=== PATIENT | female | born 1935 | race Caucasian/White ===

== ENCOUNTER 2017-08-19 04:22 | Emergency (ER) | payer MEDICARE, OTHER ==
[~2017-08-19] VITALS: Ht 149.9 cm; Wt 39.0 kg
[~2017-08-19 04:22] MED LIST: ALPR.5 PO; AMPI500 PO; ANTIVIRAL MED; ATARAX; ATOR40TA PO; Aspir-Low81 MG PO; BISA5EC PO; BUME1 PO; CALCNI; CHOL10002 PO; CLON.3 PO; CLOP75 PO; DIAZ10 PO; DIAZ2; DIAZ2 PO; DIAZ5 PO; DOCU100 PO; FENT50TP TOP; FURO20 PO; GABA100 PO; HYDMOR2 PO; LABE100 PO; LEVSOD50 PO; LEVSOD75 PO; LIOT25; LIOT25 PO; LIOT5; LISI5 PO; METO25 PO; MICRO-K; NIFE10 PO; NITR.4SL; Nitroglycerin0.4 MG SL; OXYC10ER PO; POTA8; POTA8 PO; PRED10 PO; PRED5 PO; PROACE100 PO; RABE20 PO; SENN187 PO; SYNTHROID; TRAM50 PO; Valium2 MG PO; Xanax0.5 MG PO; [UNRECOGNIZED DRUG - OTHER] BC; [UNRECOGNIZED DRUG - OTHER] PO; [UNRECOGNIZED DRUG - REMARK]; [UNRECOGNIZED DRUG - REMARK]; [UNRECOGNIZED DRUG - REMARK]; [UNRECOGNIZED DRUG - REMARK]
[2017-08-19 05:10] LABS: BASOPHILS ABSOLUTE AUTO 0.01 K/mm3 (0.00-0.23); BASOPHILS PERCENT AUTO 0 % (0-2); EOSINOPHILS ABSOLUTE AUTO 0.08 K/mm3 (0.00-0.68); EOSINOPHILS PERCENT AUTO 1 % (0-6); Hematocrit 31.9 % (33.0-51.0); Hemoglobin 11.1 g/dL (11.5-16.0); IMMATURE GRAN ABSOLUTE AUTO 0.03 K/mm3 (0.00-0.10); IMMATURE GRAN PERCENT AUTO 0 % (0-1); LYMPHOCYTES ABSOLUTE AUTO 0.97 K/mm3 (0.84-5.20); LYMPHOCYTES PERCENT AUTO 9 % (21-46); MONOCYTES ABSOLUTE AUTO 0.83 K/mm3 (0.16-1.47); MONOCYTES PERCENT AUTO 7 % (4-13); Mean Corpuscular HGB Conc 34.8 g/dL (31.5-36.5); Mean Corpuscular Volume 89 fL (80-100); Mean Platelet Volume 8.6 fL (9.1-12.4); NEUTROPHILS ABSOLUTE AUTO 9.37 K/mm3 (1.96-9.15); NEUTROPHILS PERCENT AUTO 83 % (41-73); Platelet Count 187 K/mm3 (150-400); RDW Coefficient Variation 15.2 % (11.7-14.2); RDW Standard Deviation 49.7 fL (35.1-46.3); Red Blood Cell Count 3.58 M/mm3 (3.80-5.20); White Blood Cell Count 11.29 K/mm3 (4.00-11.30)
[2017-08-19 05:36] LABS: Alanine Aminotransfer (ALT/SGP 14 U/L (12-78); Albumin, Blood 3.5 g/dL (3.4-5.0); Albumin/Globulin Ratio 1.1 (0.8-1.8); Alk Phos 83 U/L (50-136); Anion Gap 7 mmol/L (6-16); Aspartate Aminotrans (AST/SGOT 22 U/L (12-37); Bilirubin, Total 0.9 mg/dL (0.1-1.0); Blood Urea Nitrogen 16 mg/dL (8-24); Bun/Creatinine Ratio 21.4 (12.0-20.0); CO2, Blood 31 mmol/L (21-32); Calcium, Blood 8.9 mg/dL (8.5-10.1); Chloride, Blood 96 mmol/L (98-108); Creatinine, Blood 0.75 mg/dL (0.40-1.00); Globulin, Blood 3.1 g/dL (2.2-4.0); Glomerular Filtration Rate >60 (60-); Glucose, Blood 96 mg/dL (70-99); Potassium, Blood 3.3 mmol/L (3.5-5.5); Sodium, Blood 134 mmol/L (136-145); Total Protein, Blood 6.6 g/dL (6.4-8.2); Troponin I 0.017 ng/mL (0.000-0.040)
[2017-09-06] MEDS ORDERED: PRED5 PO ×2 (06:18→06:20)
[2017-09-06] MEDS ORDERED: LOSA25 PO (06:18)
[2017-09-06] MEDS ORDERED: HYDR10 PO ×2 (06:18→06:20)
[2017-09-06] MEDS ORDERED: FOLI1 PO (06:20)
[2017-09-06] MEDS ORDERED: LOSA50 PO (06:20)
[2017-09-06] MEDS ORDERED: FAMO20 PO (06:20)
[2017-09-06] MEDS ORDERED: METO50 PO (06:20)
[2017-09-06] MEDS ORDERED: K-TAB ER8 MEQ PO (06:21)
[2017-09-06] MEDS ORDERED: MAGCHL64ER PO (06:22)
[2017-09-06] MEDS ORDERED: VITAMIN D32000 UNIT PO (06:22)
[2017-09-06] MEDS ORDERED: NIAC500 PO (06:22)
[2017-09-06] MEDS ORDERED: CALCA400CH PO (06:23)
[2017-09-06] MEDS ORDERED: TRAM50 PO (06:23)
[2017-09-06] MEDS ORDERED: Synthroid50 MCG (06:24)
[2017-09-06] MEDS ORDERED: HYDPRA60 TOP (10:19)
[2017-09-29] MEDS ORDERED: LEVSOD75 PO (17:34)
[2018-07-26] MEDS ORDERED: FURO20 PO (15:18)
[2018-07-26] MEDS ORDERED: Norvasc2.5 MG PO (15:18)
[2018-07-26] MEDS ORDERED: ISOD40ER (15:18)
[2018-07-26] MEDS ORDERED: ALPR.5 PO (15:19)
[2018-07-26] MEDS ORDERED: BETA.05TCA (15:19)
[2018-07-26] MEDS ORDERED: BISA10S PR (15:20)
[2018-07-26] MEDS ORDERED: DIPH50 PO (15:20)
[2018-07-26] MEDS ORDERED: OLAN5 PO (15:21)
[2018-07-26] MEDS ORDERED: PRED10 PO (15:22)
[2018-07-26] MEDS ORDERED: LOPE2C PO (15:22)
[2018-07-26] MEDS ORDERED: TRAM50 PO (15:22)
[2018-07-31] MEDS ORDERED: DOCU100 PO (16:29)
[2018-07-31] MEDS ORDERED: Ferrous Sulfat325 M2 PO (16:30)
[2018-07-31] MEDS ORDERED: Isosorbide Mono30 MG PO (16:33)
[2018-07-31] MEDS ORDERED: METO50 PO (16:35)
== END 2017-08-19 08:21 | disposition home or self-care (01) ==
LOC: ER 04:22
PROVIDERS: Emergency Medicine
DX: I10 Essential (primary) hypertension (principal); K21.9 Gastro-esophageal reflux disease without esophagitis; I48.91 Unspecified atrial fibrillation; F32.9 Major depressive disorder, single episode, unspecified; Z88.1 Allergy status to other antibiotic agents; Z88.5 Allergy status to narcotic agent; Z88.4 Allergy status to anesthetic agent; Z88.8 Allergy status to other drugs, medicaments and biological substances; Z88.6 Allergy status to analgesic agent; Z88.0 Allergy status to penicillin; Z88.2 Allergy status to sulfonamides; Z79.52 Long term (current) use of systemic steroids; Z90.710 Acquired absence of both cervix and uterus; Z90.49 Acquired absence of other specified parts of digestive tract; Z91.14 Patient's other noncompliance with medication regimen
CPT/HCPCS: 80053; 81000; 84484; 85025; 93005; 93010; 96374; 99283

== ENCOUNTER 2017-09-28 14:19 | Inpatient (IN) | payer MEDICARE, OTHER ==
[~2017-09-28] VITALS: Ht 152.4 cm; Wt 38.7 kg
[~2017-09-28 14:19] MED LIST changes: +CALCA400CH PO; +FAMO20 PO; +FOLI1 PO; +HYDPRA60 TOP; +HYDR10 PO; +LOSA25 PO; +LOSA50 PO; +MAGCHL64ER PO; +METO50 PO; +NIAC500 PO; +POTA10T PO; +Synthroid50 MCG; +VITAMIN D32000 UNIT PO
[2017-09-28] MEDS ORDERED: Nitroglycerin0.4 MG SL (15:00)
[2017-09-28] MEDS ORDERED: MAGNESIUM400 MG PO (15:01)
[2017-09-28] MEDS ORDERED: ZINC30 M1 PO (15:01)
[2017-09-28 15:02] LABS: BASOPHILS ABSOLUTE AUTO 0.01 K/mm3 (0.00-0.23); BASOPHILS PERCENT AUTO 0 % (0-2); EOSINOPHILS ABSOLUTE AUTO 0.06 K/mm3 (0.00-0.68); EOSINOPHILS PERCENT AUTO 1 % (0-6); Hematocrit 34.7 % (33.0-51.0); Hemoglobin 12.2 g/dL (11.5-16.0); IMMATURE GRAN ABSOLUTE AUTO 0.04 K/mm3 (0.00-0.10); IMMATURE GRAN PERCENT AUTO 1 % (0-1); LYMPHOCYTES ABSOLUTE AUTO 1.19 K/mm3 (0.84-5.20); LYMPHOCYTES PERCENT AUTO 14 % (21-46); MONOCYTES ABSOLUTE AUTO 0.51 K/mm3 (0.16-1.47); MONOCYTES PERCENT AUTO 6 % (4-13); Mean Corpuscular HGB 30.7 pg (26.0-34.0); Mean Corpuscular HGB Conc 35.2 g/dL (31.5-36.5); Mean Corpuscular Volume 87 fL (80-100); Mean Platelet Volume 8.3 fL (9.1-12.4); NEUTROPHILS ABSOLUTE AUTO 6.91 K/mm3 (1.96-9.15); NEUTROPHILS PERCENT AUTO 79 % (41-73); Platelet Count 174 K/mm3 (150-400); RDW Coefficient Variation 15.1 % (11.7-14.2); RDW Standard Deviation 48.7 fL (35.1-46.3); Red Blood Cell Count 3.98 M/mm3 (3.80-5.20); White Blood Cell Count 8.72 K/mm3 (4.00-11.30)
[2017-09-28] MEDS ORDERED: Garlic1 EAC1 PO (15:02)
[2017-09-28] MEDS ORDERED: CALCITRATE200 MG PO (15:03)
[2017-09-28 15:15] LABS: International Normalized Ratio 1.12; Prothrombin Time Results 11.7 Sec (9.7-11.5)
[2017-09-28 15:26] LABS: Alanine Aminotransfer (ALT/SGP 12 U/L (12-78); Albumin, Blood 3.3 g/dL (3.4-5.0); Alk Phos 90 U/L (50-136); Anion Gap 6 mmol/L (6-16); Aspartate Aminotrans (AST/SGOT 16 U/L (12-37); Bilirubin, Total 0.6 mg/dL (0.1-1.0); Blood Urea Nitrogen 19 mg/dL (8-24); Bun/Creatinine Ratio 24.3 (12.0-20.0); CO2, Blood 31 mmol/L (21-32); Calcium, Blood 8.5 mg/dL (8.5-10.1); Chloride, Blood 97 mmol/L (98-108); Creatinine, Blood 0.78 mg/dL (0.40-1.00); Globulin, Blood 3.2 g/dL (2.2-4.0); Glomerular Filtration Rate >60 (60-); Glucose, Blood 95 mg/dL (70-99); Magnesium, Blood 2.2 mg/dL (1.6-2.4); Potassium, Blood 3.3 mmol/L (3.5-5.5); Sodium, Blood 134 mmol/L (136-145); Total Protein, Blood 6.5 g/dL (6.4-8.2); Troponin I <0.015 ng/mL (0.000-0.040)
[2017-09-28 15:36] LABS: Base Excess Venous 6.9 mmol/L; Bicarbonate Venous 29.9 mmol/L (24.0-30.0); PCO2 Venous 45.2 mmHg (38-42); PO2 Venous 67.6 mmHg (38-42); pH Blood Venous 7.44 (7.34-7.37)
[2017-09-28 15:56] LABS: Source, Urine Voided
[2017-09-28 16:04] LABS: Appearance, Urine Clear (Clear); Bilirubin, Urine Neg (Neg); Blood, Urine Neg (Neg); Color, Urine Yellow (P-Yellow); Glucose Qualitative, Urine Neg (Neg); Ketones, Urine Neg (Neg); Leukocyte Esterase, Urine 1+ (Neg); Nitrite, Urine Neg (Neg); Protein, Urine Neg (Neg); Urobilinogen, Urine NORM (Normal)
[2017-09-28 16:12] LABS: Bacteria Mod /hpf; Red Blood Cells, Urine 0-2 /hpf (0-2); Squamous Epithelial Cells Few /hpf (Few)
[2017-09-28 16:15] LABS: U Amphetamine Screen Not Detected; U Barbituate Screen Not Detected; U Benzodiazapine Screen Not Detected; U Buprenorphine Screen Not Detected; U Cannabinoids Screen Not Detected; U Cocaine Screen Not Detected; U Methadone Screen Not Detected; U Methamphetamine Screen Not Detected; U Opiates Screen Not Detected; U Oxycodone Screen Not Detected; U Phencyclidine Screen Not Detected; U Propoxyphene Screen Not Detected
[2017-09-29 09:55] LABS: CPK Creatine Kinase 30 U/L (26-193); Troponin I <0.015 ng/mL (0.000-0.040)
[2017-09-29] MEDS ORDERED: Nattokinase PO (17:26)
[2017-09-29] MEDS ORDERED: LEVSOD50 PO (17:34)
[2017-09-29] MEDS ORDERED: HYDR10 PO (17:36)
[2017-09-29] MEDS ORDERED: LOSA50 PO (17:37)
[2017-09-30 05:57] LABS: BASOPHILS PERCENT AUTO 0 % (0-2); EOSINOPHILS PERCENT AUTO 0 % (0-6); Hematocrit 34.8 % (33.0-51.0); Hemoglobin 12.1 g/dL (11.5-16.0); IMMATURE GRAN ABSOLUTE AUTO 0.02 K/mm3 (0.00-0.10); IMMATURE GRAN PERCENT AUTO 0 % (0-1); LYMPHOCYTES ABSOLUTE AUTO 0.38 K/mm3 (0.84-5.20); LYMPHOCYTES PERCENT AUTO 4 % (21-46); MONOCYTES ABSOLUTE AUTO 0.27 K/mm3 (0.16-1.47); MONOCYTES PERCENT AUTO 3 % (4-13); Mean Corpuscular HGB 30.3 pg (26.0-34.0); Mean Corpuscular HGB Conc 34.8 g/dL (31.5-36.5); Mean Corpuscular Volume 87 fL (80-100); Mean Platelet Volume 8.5 fL (9.1-12.4); NEUTROPHILS ABSOLUTE AUTO 8.81 K/mm3 (1.96-9.15); NEUTROPHILS PERCENT AUTO 93 % (41-73); Platelet Count 206 K/mm3 (150-400); RDW Coefficient Variation 15.1 % (11.7-14.2); RDW Standard Deviation 49.1 fL (35.1-46.3); White Blood Cell Count 9.48 K/mm3 (4.00-11.30)
[2017-09-30 07:09] LABS: Alanine Aminotransfer (ALT/SGP 8 U/L (12-78); Albumin, Blood 2.9 g/dL (3.4-5.0); Alk Phos 81 U/L (50-136); Anion Gap 5 mmol/L (6-16); Aspartate Aminotrans (AST/SGOT 13 U/L (12-37); Bilirubin, Total 0.9 mg/dL (0.1-1.0); Blood Urea Nitrogen 18 mg/dL (8-24); Bun/Creatinine Ratio 26.3 (12.0-20.0); CO2, Blood 30 mmol/L (21-32); Calcium, Blood 8.7 mg/dL (8.5-10.1); Chloride, Blood 97 mmol/L (98-108); Creatinine, Blood 0.68 mg/dL (0.40-1.00); Glomerular Filtration Rate >60 (60-); Glucose, Blood 188 mg/dL (70-99); Potassium, Blood 4.4 mmol/L (3.5-5.5); Sodium, Blood 132 mmol/L (136-145); Total Protein, Blood 5.9 g/dL (6.4-8.2)
[2017-10-03 05:18] LABS: BASOPHILS ABSOLUTE AUTO 0.01 K/mm3 (0.00-0.23); BASOPHILS PERCENT AUTO 0 % (0-2); EOSINOPHILS ABSOLUTE AUTO 0.05 K/mm3 (0.00-0.68); EOSINOPHILS PERCENT AUTO 1 % (0-6); IMMATURE GRAN ABSOLUTE AUTO 0.06 K/mm3 (0.00-0.10); IMMATURE GRAN PERCENT AUTO 1 % (0-1); LYMPHOCYTES ABSOLUTE AUTO 1.43 K/mm3 (0.84-5.20); LYMPHOCYTES PERCENT AUTO 15 % (21-46); MONOCYTES ABSOLUTE AUTO 0.66 K/mm3 (0.16-1.47); MONOCYTES PERCENT AUTO 7 % (4-13); Mean Corpuscular HGB 30.3 pg (26.0-34.0); Mean Corpuscular HGB Conc 34.4 g/dL (31.5-36.5); Mean Corpuscular Volume 88 fL (80-100); Mean Platelet Volume 8.8 fL (9.1-12.4); NEUTROPHILS ABSOLUTE AUTO 7.64 K/mm3 (1.96-9.15); NEUTROPHILS PERCENT AUTO 78 % (41-73); Platelet Count 204 K/mm3 (150-400); RDW Coefficient Variation 15.4 % (11.7-14.2); RDW Standard Deviation 49.6 fL (35.1-46.3); Red Blood Cell Count 3.63 M/mm3 (3.80-5.20); White Blood Cell Count 9.85 K/mm3 (4.00-11.30)
[2017-10-03 05:41] LABS: Alanine Aminotransfer (ALT/SGP 16 U/L (12-78); Alk Phos 88 U/L (50-136); Anion Gap 5 mmol/L (6-16); Aspartate Aminotrans (AST/SGOT 18 U/L (12-37); Bilirubin, Total 0.5 mg/dL (0.1-1.0); Blood Urea Nitrogen 22 mg/dL (8-24); Bun/Creatinine Ratio 26.5 (12.0-20.0); CO2, Blood 30 mmol/L (21-32); Calcium, Blood 8.6 mg/dL (8.5-10.1); Chloride, Blood 98 mmol/L (98-108); Creatinine, Blood 0.83 mg/dL (0.40-1.00); Globulin, Blood 3.1 g/dL (2.2-4.0); Glomerular Filtration Rate >60 (60-); Glucose, Blood 107 mg/dL (70-99); Magnesium, Blood 2.3 mg/dL (1.6-2.4); Potassium, Blood 4.4 mmol/L (3.5-5.5); Sodium, Blood 133 mmol/L (136-145); Total Protein, Blood 6.1 g/dL (6.4-8.2)
[2017-10-03] MEDS ORDERED: OLANZAPINE5 MG PO (15:03)
[2018-07-26] MEDS ORDERED: AMLO5 PO (15:18)
[2018-07-26] MEDS ORDERED: FURO20 PO (15:18)
[2018-07-26] MEDS ORDERED: ISOD40ER (15:18)
[2018-07-26] MEDS ORDERED: BETA.05TCA (15:19)
[2018-07-26] MEDS ORDERED: ALPR.5 PO (15:19)
[2018-07-26] MEDS ORDERED: DIPH50 PO (15:20)
[2018-07-26] MEDS ORDERED: BISA10S PR (15:20)
[2018-07-26] MEDS ORDERED: OLAN5 PO (15:21)
[2018-07-26] MEDS ORDERED: TRAM50 PO (15:22)
[2018-07-26] MEDS ORDERED: LOPE2C PO (15:22)
[2018-07-26] MEDS ORDERED: PRED10 PO (15:22)
[2018-07-31] MEDS ORDERED: DOCU100 PO (16:29)
[2018-07-31] MEDS ORDERED: Ferrous Sulfat325 M2 PO (16:30)
[2018-07-31] MEDS ORDERED: ISOMON20 PO (16:33)
[2018-07-31] MEDS ORDERED: METO50 PO (16:35)
== END 2017-10-03 16:15 | disposition home or self-care (01) | DRG 690 ==
LOC: ER 14:19 → MEDS 21:37 → ER 21:37 → EOR 21:37 → MEDS 09-29 08:06 → EOR 09-29 08:06 → MEDS 09-29 21:29 → ENPENDDIS 10-03 10:00 → EDPENDDIS 10-03 10:00 → MEDS 10-03 16:15
PROVIDERS: Emergency Medicine; Internal Medicine
DX: N39.0 Urinary tract infection, site not specified (principal); I48.91 Unspecified atrial fibrillation; M06.9 Rheumatoid arthritis, unspecified; E03.9 Hypothyroidism, unspecified; G25.81 Restless legs syndrome; E87.6 Hypokalemia; B95.2 Enterococcus as the cause of diseases classified elsewhere; R07.9 Chest pain, unspecified; I10 Essential (primary) hypertension; M79.7 Fibromyalgia; F32.9 Major depressive disorder, single episode, unspecified; K21.9 Gastro-esophageal reflux disease without esophagitis; Z88.1 Allergy status to other antibiotic agents; Z88.5 Allergy status to narcotic agent; F29 Unspecified psychosis not due to a substance or known physiological condition; R07.81 Pleurodynia; M80.08XD Age-related osteoporosis with current pathological fracture, vertebra(e), subsequent encounter for fracture with routine healing; R42 Dizziness and giddiness; G89.29 Other chronic pain; M79.89 Other specified soft tissue disorders; Z88.2 Allergy status to sulfonamides; Z79.52 Long term (current) use of systemic steroids; F41.9 Anxiety disorder, unspecified
CPT/HCPCS: 36415; 70450; 71046; 80053; 81001; 82550; 82803; 83690; 83735; 83880; 84443; 84484; 85025; 85379; 85610; 85651; 86140; 87077; 87086; 87186; 93005; 93010; 93971; 96374; 96375; 96376; 97116; 97162; 97165; 97530; 97535; 99285; G0378; G8978; G8979; G8987; G8988; G8989; J0360; J0696; J1650; J2270; J7030; Q0163

== ENCOUNTER → 2017-10-21 | Outpatient (CLI) | payer MEDICARE, OTHER ==
[~2017-10-21] MED LIST changes: +AMLO5 PO; +BETA.05TCA; +BISA10S PR; +CALCITRATE200 MG PO; +DIPH50 PO; +Ferrous Sulfat325 M2 PO; +Garlic1 EAC1 PO; +ISOD40ER; +ISOMON20 PO; +LOPE2C PO; +MAGNESIUM400 MG PO; +Nattokinase PO; +OLAN5 PO; +OLANZAPINE5 MG PO; +ZINC30 M1 PO
[2017-10-22 12:44] LABS: Bilirubin, Urine Neg (Neg); Blood, Urine Neg (Neg); Glucose Qualitative, Urine Neg (Neg); Ketones, Urine Neg (Neg); Leukocyte Esterase, Urine 2+ (Neg); Nitrite, Urine Neg (Neg); Protein, Urine Neg (Neg); Specific Gravity, Urine 1.015 (1.003-1.022); Urobilinogen, Urine NORM (Normal)
[2017-10-22 13:03] LABS: Appearance, Urine Clear (Clear); Bacteria Not Seen /hpf; Color, Urine Yellow (P-Yellow); Red Blood Cells, Urine Not Seen /hpf (0-2)
[2017-10-22 13:04] LABS: Squamous Epithelial Cells Rare /hpf (Few)
== END ==
LOC: LAB 11:29
DX: N39.0 Urinary tract infection, site not specified (principal)
CPT/HCPCS: 81001; 87077; 87086; 87186

== ENCOUNTER 2018-05-21 11:13 | Emergency (ER) | payer MEDICARE, OTHER ==
[~2018-05-21] VITALS: Ht 144.8 cm; Wt 49.4 kg
[~2018-05-21 11:13] MED LIST changes: -AMLO5 PO; -BETA.05TCA; -BISA10S PR; -DIPH50 PO; -Ferrous Sulfat325 M2 PO; -ISOD40ER; -ISOMON20 PO; -LOPE2C PO; -OLAN5 PO
== END 2018-05-21 12:12 | disposition home or self-care (01) ==
LOC: ER 11:13
DX: M79.1 Myalgia (principal); G89.29 Other chronic pain; I48.91 Unspecified atrial fibrillation; I10 Essential (primary) hypertension; K21.9 Gastro-esophageal reflux disease without esophagitis; F32.9 Major depressive disorder, single episode, unspecified; F41.9 Anxiety disorder, unspecified; Z88.1 Allergy status to other antibiotic agents; Z88.6 Allergy status to analgesic agent; Z88.8 Allergy status to other drugs, medicaments and biological substances; Z88.5 Allergy status to narcotic agent; Z91.012 Allergy to eggs; Z79.899 Other long term (current) drug therapy; Z79.52 Long term (current) use of systemic steroids
CPT/HCPCS: 99283

== ENCOUNTER → 2018-06-09 | Outpatient (CLI) | payer MEDICARE, OTHER ==
[2018-06-10 11:36] LABS: Bilirubin, Urine Neg (Neg); Blood, Urine Neg (Neg); Glucose Qualitative, Urine Neg (Neg); Ketones, Urine Neg (Neg); Leukocyte Esterase, Urine 1+ (Neg); Nitrite, Urine Neg (Neg); Protein, Urine Neg (Neg); Specific Gravity, Urine 1.005 (1.003-1.022); Urobilinogen, Urine NORM (Normal)
[2018-06-10 11:54] LABS: Appearance, Urine Clear (Clear); Color, Urine Yellow (P-Yellow)
[2018-06-10 11:56] LABS: Bacteria Few /hpf; Red Blood Cells, Urine Not Seen /hpf (0-2); Squamous Epithelial Cells Few /hpf (Few)
== END ==
LOC: LAB SHORT 21:00
PROVIDERS: Internal Medicine Hematology & Oncology
DX: N39.0 Urinary tract infection, site not specified (principal)
CPT/HCPCS: 81001

== ENCOUNTER 2018-11-08 21:51 | Observation (INO) | payer MEDICARE, OTHER ==
[~2018-11-08] VITALS: Ht 149.9 cm; Wt 54.6 kg
[~2018-11-08 21:51] MED LIST changes: +AMLO5 PO; +BETA.05TCA; +BISA10S PR; +DIPH50 PO; +Ferrous Sulfat325 M2 PO; +ISOD40ER; +ISOMON20 PO; +LOPE2C PO; +OLAN5 PO
[2018-11-08 22:12] LABS: BASOPHILS ABSOLUTE AUTO 0.03 K/mm3 (0.00-0.23); BASOPHILS PERCENT AUTO 0 % (0-2); EOSINOPHILS ABSOLUTE AUTO 0.23 K/mm3 (0.00-0.68); EOSINOPHILS PERCENT AUTO 3 % (0-6); Hematocrit 33.6 % (33.0-51.0); Hemoglobin 11.6 g/dL (11.5-16.0); IMMATURE GRAN ABSOLUTE AUTO 0.03 K/mm3 (0.00-0.10); IMMATURE GRAN PERCENT AUTO 0 % (0-1); LYMPHOCYTES ABSOLUTE AUTO 1.02 K/mm3 (0.84-5.20); LYMPHOCYTES PERCENT AUTO 12 % (21-46); MONOCYTES ABSOLUTE AUTO 0.52 K/mm3 (0.16-1.47); MONOCYTES PERCENT AUTO 6 % (4-13); Mean Corpuscular HGB 32.2 pg (26.0-34.0); Mean Corpuscular HGB Conc 34.5 g/dL (31.5-36.5); Mean Corpuscular Volume 93 fL (80-100); Mean Platelet Volume 8.2 fL (9.1-12.4); NEUTROPHILS PERCENT AUTO 79 % (41-73); Platelet Count 201 K/mm3 (150-400); RDW Standard Deviation 52.1 fL (35.1-46.3); White Blood Cell Count 8.83 K/mm3 (4.00-11.30)
[2018-11-08 22:33] LABS: Alanine Aminotransfer (ALT/SGP 15 U/L (12-78); Albumin, Blood 2.9 g/dL (3.4-5.0); Albumin/Globulin Ratio 0.7 (0.8-1.8); Alk Phos 84 U/L (50-136); Anion Gap 7 mmol/L (6-16); Aspartate Aminotrans (AST/SGOT 18 U/L (12-37); Bilirubin, Total 0.5 mg/dL (0.1-1.0); Blood Urea Nitrogen 17 mg/dL (8-24); Bun/Creatinine Ratio 17.7 (12.0-20.0); CO2, Blood 29 mmol/L (21-32); Calcium, Blood 8.5 mg/dL (8.5-10.1); Chloride, Blood 100 mmol/L (98-108); Creatinine, Blood 0.96 mg/dL (0.40-1.00); Glomerular Filtration Rate 59 (60-); Glucose, Blood 149 mg/dL (70-99); Magnesium, Blood 2.1 mg/dL (1.6-2.4); Potassium, Blood 3.8 mmol/L (3.5-5.5); Sodium, Blood 136 mmol/L (136-145); Total Protein, Blood 6.9 g/dL (6.4-8.2); Troponin I <0.015 ng/mL (0.000-0.040)
[2018-11-08 22:46] LABS: Influenza A Negative (NEGATIVE); Influenza B Positive (NEGATIVE)
[2018-11-09] MEDS ORDERED: DOCU100 PO (02:40)
[2018-11-09] MEDS ORDERED: (None)15 G1 TOP (02:42)
[2018-11-09] MEDS ORDERED: Milk Of Ma400 MG/5 M PO (02:45)
[2018-11-09] MEDS ORDERED: ENEMA BOTTLE1 EACH PR (02:48)
[2018-11-09] MEDS ORDERED: Calmoseptine Oi71 GM TOP (02:50)
[2018-11-09] MEDS ORDERED: CALCA400CH PO (02:52)
--- NOTE | 2018-11-09 05:26 | NUR ---
SHIFT SUMMARY THE PT ADMITTED FOR INFLUENZA B AND C/O CP. DROPLET PRECAUTIONS FOR INFLUENZA B +. DNR. REGULAR DIET. TELE-NSR AT A RATE OF 73 PER MEDICAL INSTRUMENT CABLE FABRICATOR. LOVENOX. NS A 75 MLS/HR X1 BAG. 20G IV TO R HAND. 1 ASSIST WITH TRANSFER. MEDS WHOLE WITH WATER. TEMP IN ED OF 100.7 DOWN TO 99.7 AFTER ADMINISTRATION OF TYLENOL PER REPORT. NO TEMP OBSERVED OR REPORT SINCE ADMIT. THE PT PRESENTED TO THE ED VIA EMS FROM [facility] WITH C/O INTERMITTENT CP TODAY. THE PT REPORTED PAIN TO WORSEN WITH DEEP BREATHS. THE PT REPORTED HAVING A COUGH FOR THE PAST SEVERAL DAY BUT NON NOTED SO FAR SINCE ADMIT. THE PT IS ALERT, ORIENTED, PLEASENT, AND COOPERATIVE WITH CARE. THE PT APPEARS TO BE SLEEPING COMFORTABLY AT THIS TIME. THE PT DOES APPEAR TO BE A BIT FORGETFUL NEEDING FREQUENT REMINDERS AND EXTRA TIME FOR EDUCATION. NO APPARENT SIGNS OF ACUTE DISTRESS. ABLE TO MAKE NEEDS KNOWN AND CALL LIGHT IN REACH. PT DOES APPEAR TO USE CALL LIGHT APPROPRIATELY AND WAIT FOR ASSIST WITH TRANSFERS.
[2018-11-09 06:20] LABS: Hematocrit 31.8 % (33.0-51.0); Hemoglobin 11.2 g/dL (11.5-16.0); Mean Corpuscular HGB 33.3 pg (26.0-34.0); Mean Corpuscular HGB Conc 35.2 g/dL (31.5-36.5); Mean Corpuscular Volume 95 fL (80-100); Mean Platelet Volume 8.4 fL (9.1-12.4); NRBC ABSOLUTE 0.02 K/mm3 (0.00-0.02); NRBC Auto 0.3 /100 WBC (0.0-0.2); Platelet Count 176 K/mm3 (150-400); RDW Coefficient Variation 14.8 % (11.7-14.2); Red Blood Cell Count 3.36 M/mm3 (3.80-5.20); White Blood Cell Count 7.87 K/mm3 (4.00-11.30)
[2018-11-09 06:40] LABS: Troponin I 0.023 ng/mL (0.000-0.040)
[2018-11-09 06:43] LABS: Alanine Aminotransfer (ALT/SGP 9 U/L (12-78); Albumin, Blood 2.7 g/dL (3.4-5.0); Albumin/Globulin Ratio 0.7 (0.8-1.8); Alk Phos 73 U/L (50-136); Anion Gap 8 mmol/L (6-16); Aspartate Aminotrans (AST/SGOT 17 U/L (12-37); Bilirubin, Total 0.7 mg/dL (0.1-1.0); Blood Urea Nitrogen 12 mg/dL (8-24); Bun/Creatinine Ratio 14.5 (12.0-20.0); CO2, Blood 26 mmol/L (21-32); Calcium, Blood 8.1 mg/dL (8.5-10.1); Chloride, Blood 105 mmol/L (98-108); Creatinine, Blood 0.83 mg/dL (0.40-1.00); Globulin, Blood 3.7 g/dL (2.2-4.0); Glomerular Filtration Rate >60 (60-); Glucose, Blood 100 mg/dL (70-99); Potassium, Blood 3.6 mmol/L (3.5-5.5); Sodium, Blood 139 mmol/L (136-145); Total Protein, Blood 6.4 g/dL (6.4-8.2)
[2018-11-09 14:41] LABS: CPK Creatine Kinase 40 U/L (26-193); Troponin I <0.015 ng/mL (0.000-0.040)
--- NOTE | 2018-11-10 04:11 | NUR ---
SHIFT SUMMARY NO APPARENT ACUTE CHANGES NOTED SO FAR THIS SHIFT. PER REPORT THE PT WILL LIKELY DC BACK TO [place] TODAY THEY WISHED TO DC YESTERDAY BUT WERE UNABLE TO. IT IS UNCLEAR WITH THE WEATHER IF PT WILL BE ABLE TO BE TRANSPORTED BACK TO ASSISTED LIVING OR NOT. THE PT APPEARED WORRIED ABOUT GIVING THE FLU TO OTHER RESIDENTS AT HER HOME. REASSURED PT THAT PROPER PRECAUTIONS WILL LIKELY BE TAKEN TO PREVENT THAT FROM OCCURING. THE PT HAS APPEARED TO SLEEP COMFORTABLY MOST OF THE NIGHT WITH NO APPARENT SIGNS OF ACUTE DISTRESS. ABLE TO MAKE NEEDS KNOWN AND CALL LIGHT IN REACH.
--- NOTE | 2018-11-10 17:46 | NUR ---
SHIFT SUMMARY PT HAS HAD NO COMPLAINTS THIS SHIFT. RESP EASY/UNLABORED AND PT ON ROOM AIR. PT UP TO BSC WITH STAND-BY ASSIST. PT FORGETFUL AND DOES NOT CALL FOR ASSISTANCE. NO ACUTE CHANGES THIS SHIFT. WILL CONTINUE TO MONITOR AND REPORT TO ONCOMING RN. CALL LIGHT IN REACH. BED ALARM ON FOR SAFETY.
--- NOTE | 2018-11-11 04:12 | NUR ---
SHIFT SUMMARY: PT IS ALERT AND ORIENTED. PT IS CALM AND COOPERATIVE WITH CARE. PT CALLS APPROPRIATELY. PT IS A STANDBY ASSIST TO THE BATHROOM. PT REPORST SOB UPON EXERTION, SATS > 90% ON ROOM AIR. PT DENIES PAIN, NAUSEA, AND VOMITING. PT SLEPT MUCH OF THE NIGHT. NO ACUTE CHANGES OR COMPLICATIONS. WILL REPORT TO DAY NURSE.
--- NOTE | 2018-11-11 17:42 | NUR ---
PT IS A/OX3, PLEASANT AND COOPERATIVE, SLOW TO RESPOND AND FORGETFULL AT TIMES, PT WAS DROWSY THIS AM AND DID NOT WANT BREAKFAST HOWEVER THIS AFTERNOON THE PT WOKE UP MORE AND WAS ABLE TO GET UP TO THE CHAIR FOR LUNCH, THE PT DENIED ANY PAIN T/O THE DAY, PLAN TO DISCHARGE THE PT BACK TO [facility] WHER SHE LIVES, HOWEVER DUE TO THE INCLEMENT WEATHER WE ARE UNABLE TO CONTACT [facility] TODAY, CALL LIGHT IN REACH, BED ALARM ON, NO OTHER CHANGES NOTICED THIS SHIFT
--- NOTE | 2018-11-12 05:00 | NUR ---
SHIFT SUMMARY PT UP TO VOID FREQUENTLY. AMBULATES EASY SBA W/ FWW TO RESTROOM, NEEDS ASSISTED BY 2 PEOPLE TO BOOST UP IN BED. GETS UP WITHOUT CALLING AT TIMES. BED ALARM ON FOR SAFETY. PT REPORTED PAIN TO BLE'S FROM RESTLESS LEGS. MEDICATED X 1 W/ ULTRAM. VERY EFFECTIVE. PT DID NOT SLEEP VERY MUCH TONIGHT, NOT FALLING ASLEEP UNTIL EARLY THIS AM. OTHERWISE NO ACUTE CHANGES. WILL CONTINUE TO MONITOR AND REPORT TO DAY RN.
--- NOTE | 2018-11-12 16:56 | NUR ---
DISCHARGE NOTE PT'S PERSONAL BELONGINGS BAGGED UP AND GIVEN TO THE PATIENT. EXPLOSIVE ORDNANCE DISPOSAL TECHNICIAN AYESHA SET UP ARRANGEMENTS WITH [facility] FOR TRANSFER BACK TO FACILITY FROM [facility]. EXPLOSIVE ORDNANCE DISPOSAL TECHNICIAN AYESHA ARRANGED FOR [facility] TRANSFER. [facility] ARRIVED TO TRANSPORT PATIENT AND WAS GIVEN REQUIRED PAPERWORK. I ATTEMPTED TO GIVE HANDOFF REPORT TO [facility] MULTIPLE TIMES VIA PHONE, BUT THERE WAS NO ANSWER AND THEIR VOICEMAIL BOX WAS NOT ACCEPTING MESSAGES. I INFORMED MY CHARGE NURSE AND EXPLOSIVE ORDNANCE DISPOSAL TECHNICIAN OF THIS. I SENT A NOTE WITH THE PATIENT TO REQUEST [facility] CALL ME FOR HANDOFF REPORT. PT HAD NO IV. PT'S FAMILY WAS INFORMED OF THE PT'S TRANSFER BACK TO [facility]. ALL PATIENT CARE ORDERS AND MEDICATION ORDERS WERE SENT TO [facility].
== END 2018-11-12 17:01 | disposition home or self-care (01) ==
LOC: ER 21:51 → MEDS 21:52 → ER 23:19 → MEDS 23:19 → ER 11-09 00:13 → MEDS 11-09 00:21
PROVIDERS: Emergency Medicine; ADMIT Internal Medicine
DX: A41.9 Sepsis, unspecified organism (principal); J10.1 Influenza due to other identified influenza virus with other respiratory manifestations; I10 Essential (primary) hypertension; F32.9 Major depressive disorder, single episode, unspecified; F41.9 Anxiety disorder, unspecified; E03.9 Hypothyroidism, unspecified; M06.9 Rheumatoid arthritis, unspecified; M79.7 Fibromyalgia; K21.9 Gastro-esophageal reflux disease without esophagitis; G25.81 Restless legs syndrome; Z79.899 Other long term (current) drug therapy; Z79.52 Long term (current) use of systemic steroids; Z88.0 Allergy status to penicillin; Z88.6 Allergy status to analgesic agent; Z88.5 Allergy status to narcotic agent; Z88.8 Allergy status to other drugs, medicaments and biological substances; Z88.2 Allergy status to sulfonamides
CPT/HCPCS: 36415; 71046; 80053; 82550; 83605; 83735; 83880; 84484; 85025; 85027; 87040; 87804; 93005; 93010; 96360; 96361; 96372; 96374; 99285-25; G0378; J0360; J1650; J7030

== ENCOUNTER 2019-02-15 09:00 | Emergency (ER) | payer MEDICARE, OTHER ==
[~2019-02-15] VITALS: Ht 157.5 cm; Wt 54.4 kg
[~2019-02-15 09:00] MED LIST changes: +(None)15 G1 TOP; -AMLO5 PO; +Calmoseptine Oi71 GM TOP; +ENEMA BOTTLE1 EACH PR; -ISOMON20 PO; +Isosorbide Mono30 MG PO; +K-TAB ER8 MEQ PO; +Milk Of Ma400 MG/5 M PO; +Norvasc2.5 MG PO; -POTA10T PO
[2019-02-15 09:56] LABS: Source, Urine Catheter
[2019-02-15 09:59] LABS: PCO2 Arterial 28.4 mmHg (35-45); PO2 Arterial 67.6 mmHg (80-100)
[2019-02-15 09:59] LABS: Appearance, Urine Clear (Clear); Bilirubin, Urine Neg (Neg); Blood, Urine Neg (Neg); Color, Urine Yellow (P-Yellow); Glucose Qualitative, Urine Neg (Neg); Ketones, Urine Neg (Neg); Leukocyte Esterase, Urine 1+ (Neg); Nitrite, Urine Neg (Neg); Protein, Urine 2+ (Neg); Specific Gravity, Urine 1.015 (1.003-1.022); Urobilinogen, Urine NORM (Normal)
[2019-02-15 10:02] LABS: pH Blood Arterial 7.13 (7.35-7.45)
[2019-02-15 10:11] LABS: Squamous Epithelial Cells Few /hpf (Few)
[2019-02-15 10:13] LABS: Bacteria Few /hpf; Red Blood Cells, Urine 0-2 /hpf (0-2); White Blood Cells, Urine 0-2 /hpf (0-5)
== END 2019-02-15 12:05 ==
LOC: ER 09:00
PROVIDERS: Emergency Medicine
DX: R40.20 Unspecified coma (principal); I95.9 Hypotension, unspecified; R06.89 Other abnormalities of breathing; I10 Essential (primary) hypertension; I48.91 Unspecified atrial fibrillation; K21.9 Gastro-esophageal reflux disease without esophagitis; F32.9 Major depressive disorder, single episode, unspecified; F41.9 Anxiety disorder, unspecified; Z79.899 Other long term (current) drug therapy
CPT/HCPCS: 36600; 51702; 71045; 81001; 82803; 87086; 93005; 93010; 96374-59; 96375-59; 99285-25; J2405; J3010; J7030